=== PATIENT | female | born 1965 | race Caucasian/White ===

== ENCOUNTER 2017-04-24 10:38 | Inpatient (IN) | payer SELFPAY ==
[2017-04-24] MEDS ORDERED: Ticagrelor 90 MG Tab PO ONE (10:40)
[2017-04-24] MEDS ORDERED: Famotidine 20 MG/2 ML SDV IVPUSH ONE (10:40)
[2017-04-24] MEDS ORDERED: Metoprolol Tartrate 5 MG/5 ML SDV IVPUSH ONE (10:40)
[2017-04-24] MEDS ORDERED: Aspirin 81 MG Tab.Chew CHEW ONE (10:40)
--- NOTE | 2017-04-24 10:40 | EDM.PDOC ---
ED HPI GENERAL MEDICAL PROBLEM - General Chief Complaint: Respiratory Problem Stated Complaint: SOB Time Seen by Provider: 04/24/17 10:40 Source of Information: Reports: Patient, Family (), Old Records ([facility] EMR. No paper hospital chart available.), Other ( Essentially EMR) History Limitations: Reports: No Limitations - History of Present Illness INITIAL COMMENTS - FREE TEXT/NARRATIVE: The patient was brought to the emergency room via private automobile by her for evaluation of 8/10 sharp pressure type retrosternal chest pain with some radiation to the mid back and upper lumbar region and associated with severe dyspnea, some left arm paresthesias, dizziness, and possible near- syncope. She has not taken any medications to this point for her above symptoms. The patient denies any orthostasis, orthopnea, diaphoresis, recent decreased exercise tolerance, or any other anginal-type symptoms. No recent history of abdominal pain, heartburn, nausea, diarrhea, melena, or any food intolerance, including fatty foods, etc., however occasional gross hematochezia during the last couple of weeks with no recent history of antibiotic therapy. She has had a two-week history of a mostly greenish clear productive cough and nasal drainage with possible fever yesterday, however temperature not measured with no known exposure to infection. She also complains of some mild dysuria and urinary frequency with gross hematuria but no colic during the last 2 weeks. She did use her inhaler at about 8 AM this morning, although she is uncertain about whether the inhaler still had medication. She is currently transferring her care from [facility] to [place] and has not been able to refill her medications for about one month. Onset: Today, Sudden Onset Date: 04/24/17 Onset Time: 10:00 Duration: Constant, Getting Worse Location: Reports: Chest, Back, Upper Extremity, Left (Paresthesias only), Radiates to (As above). Denies: Head, Face, Neck, Abdomen, Pelvis, Upper Extremity, Right, Lower Extremity, Left, Lower Extremity, Right Quality: Reports: Ache, Pressure, Sharp Severity: Severe Improves with: Reports: None Worsens with: Reports: None Context: Reports: Other (As above) Associated Symptoms: Reports: Chest Pain, cough w sputum, Fever/Chills, Shortness of Breath, Syncope (Near syncope as above). 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) (As above) Middle Chest Pain Score (Numeric/FACES): 8 - Related Data Allergies Allergy/AdvReac Type Severity Reaction Status Date / Time metronidazole [From Flagyl] Allergy Cannot Verified 04/24/17 10:57 Remember Home Meds: Home Meds Albuterol [IJD: Ventolin HFA] 2 puff INH ASDIRECTED PRN 04/24/17 [History] Metoprolol Tartrate 25 mg PO DAILY 04/24/17 [History] Omeprazole Magnesium [Prilosec Otc] 20 mg PO DAILY 04/24/17 [History] Simvastatin [Simvastatin] 40 mg PO BEDTIME 04/24/17 [History] buPROPion HCl [Wellbutrin Xl] 300 mg PO DAILY 04/24/17 [History] busPIRone HCl [Buspirone HCl] 15 mg PO DAILY 04/24/17 [History] Past Medical History HEENT History: Reports: Allergic Rhinitis. Denies: Cataract, Glaucoma, Hard of Hearing, Impaired Vision, Macular Degeneration, Retinal Detachment Cardiovascular History: Reports: High Cholesterol, Hypertension, Syncope, Other (See Below). Denies: Afib, Aneurysm, Angina, Arrhythmia, Blood Clots/VTE/DVT, CAD, Heart Failure, Heart Murmur, VT, PVD Other Cardiovascular History: Dyslipidemia, near syncopal episode in November [address] scan of the head as below Respiratory History: Reports: Asthma, Bronchitis, Recurrent, COPD, Intubation, Previous, Pneumonia, Recurrent, Other (See Below). Denies: Intubation, Difficult, Pneumothorax, Sleep Apnea, TB Other Respiratory History: Restless leg syndrome Gastrointestinal History: Reports: Chronic Diarrhea, Gastritis, GERD, Irritable Bowel Syndrome, Other (See Below). Denies: Celiac Disease, Cholelithiasis, Colon Polyp, GI Bleed, Hepatitis, Inflammatory Bowel Disease, Jaundice, Pancreatitis, PUD Other Gastrointestinal History: Nonspecific dysphagia with negative workup as below Genitourinary History: Reports: UTI, Recurrent. 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 Denies: Spontaneous , Therapeutic : 1 Para: 1 (Full term without complications during or delivery) LMP (Approximate): Menopausal Other OB/BYN History: Known history of severe pelvic adhesive disease by pelvic laparoscopic exploratory surgery as below with right-sided endometrioma/ovarian cyst, fibrocystic breast disease, surgical menopause as below Musculoskeletal History: Reports: Arthritis, Back Pain, Chronic, Fracture, Osteoarthritis, Other (See Below). Denies: Amputation, Gout, Neck Pain, Chronic , RA, SLE Other Musculoskeletal History: History of right wrist fracture with concomitant fractures of her fingers #2 through 5 in her late 30s Neurological History: Reports: Headaches, Chronic. Denies: Cerebral Aneurysms, CVA, Migraines, MS, Neuropathy, Diabetic, Neuropathy, Peripheral, Parkinson's, Seizure, TIA Psychiatric History: Reports: Addiction, Anxiety, Depression, Other (See Below) . Denies: Abuse, Victim of, ADD, ADHD, Psych Hospitalization(s), Psychosis, PTSD, Suicide Attempt, Suicidal Ideation Other Psychiatric History: History of alcohol abuse as below Endocrine/Metabolic History: Reports: None. Denies: Diabetes, Type I, Diabetes , Type II, Hypothyroidism, IDDM Hematologic History: Reports: None. Denies: Anemia, Blood Transfusion(s), Iron Deficiency Immunologic History: Reports: None. Denies: AIDS, HIV, SLE Oncologic (Cancer) History: Reports: None. Denies: Basal Cell Carcinoma, Cervix , Hodgkin's Lymphoma, Leukemia, Lymphoma, Malignant Melanoma, Non-Hodgkin's Lymphoma, Squamous Cell Carcinoma Dermatologic History: Reports: None. Denies: Eczema, Psoriasis - Infectious Disease History Infectious Disease History: Reports: Chicken Pox, Measles. Denies: C-Difficile , Meningitis, Mononucleosis, MRSA, Mumps, Pertussis (Whooping Cough), Rheumatic Fever, Rubella, Scarlet Fever, Shingles, TB, VRE - Past Surgical History Head Surgeries/Procedures: Reports: None HEENT Surgical History: Reports: Oral Surgery, Other (See Below). Denies: Adenoidectomy, Cataract Surgery, Eye Surgery, Laser Surgery, LASIK, Myringotomy w Tube(s), Naso-Sinus Surgery, Polypectomy, Tonsillectomy Other HEENT Surgeries/Procedures: Laryngoscopy on 11/20/15, complete teeth extraction Cardiovascular Surgical History: Reports: None. Denies: Varicose, Vascular Surgery Respiratory Surgical History: Reports: None. Denies: Thoracentesis GI Surgical History: Reports: None. Denies: Appendectomy, Cholecystectomy, Colonoscopy, EGD, Hernia, Abdominal, Hernia, Inguinal, Hernia Repair/Other, Polypectomy Female Surgical History: Reports: Hysterectomy, Other (See Below). Denies: Breast Biopsy, Section, D&C, Salpingo-Oophorectomy, Tubal Ligation Other Female Surgeries/Procedures: Vaginal hysterectomy on 08/27/07, laparoscopic pelvic exploratory surgery on 10/19/06 with excision of right sided ovarian endometrioma at that time Endocrine Surgical History: Reports: None. Denies: Thyroid Biopsy Neurological Surgical History: Reports: None. Denies: C-Spine, Discectomy, Laminectomy, Spinal Fusion, Vertebroplasty Musculoskeletal Surgical History: Reports: None. Denies: Arthroscopic Knee, Arthroscopic Procedure, Carpal Tunnel, Ganglion Cyst, Joint Replacement, ORIF, Shoulder Surgery Oncologic Surgical History: Reports: None Dermatological Surgical History: Reports: Skin Biopsy, Other (See Below) Other Dermatological Surgeries/Procedures: Excision of benign dermatofibroma from the right lateral subclavicular region on 12/27/16 - Past Imaging History Past Imaging History: Reports: CAT Scan (Negative CT of the head on 11/30/11), Mammogram (Last mammogram on 11/07/16), PFT (Last PFTs with CO2 diffusion studies on 11/02/16), Ultrasound (Pelvic ultrasound on 08/10/06), Other (See Below ) (Negative esophagram on 11/22/15) Social & Family History - Family History HEENT: Reports: Glaucoma, Other (See Below). Denies: Macular Degeneration, Retinal Detachment Other HEENT Family History: Mother with glaucoma Cardiac: Reports: Aneurysm, Bypass, CAD, Heart Failure, Hypertension, VT, PVD/ COD, Other (See Below). Denies: Afib, Arrhythmia, Blood Clots/VTE/DVT, High Cholesterol, Pacemaker, Syncope Other Cardiac Family History: Mother with history of AAA requiring surgery at age 58, hypertension in mother, 6 maternal uncles and one maternal aunt, family history of hyperlipidemia unknown, carotid occlusive disease in mother which did require surgery, mother with recurrent MIs since early 60s with stent placement and additional history of CHF, maternal uncles 6 with fatal MIs in their 60s and history of previous stents and CABGs, brother with VT requiring stent placement at age 50, maternal aunt with CABG and fatal VT in her 60s Respiratory: Reports: COPD, Sleep Apnea, Other (See Below) Other Respiratory Family Hisory: Sleep apnea in maternal uncle and maternal aunt , maternal aunt with fatal COPD in her 60s with history of tobacco use GI: Reports: None. Denies: Celiac Disease, Cholelithiasis, Colon Polyps, Inflammatory Bowel Disease, Irritable Bowel Syndrome : Reports: None. Denies: Dialysis, Renal Calculus, Renal Disease/ Insufficiency, UTI, Recurrent OBGYN: Reports: None. Denies: Endometriosis, Recurrent Spontaneous Musculoskeletal: Reports: Arthritis, Osteoarthritis, Other (See Below). Denies : Gout, RA, SLE Other Musculoskeletal Family History: History of bad arthritis in mother Neurological: Reports: Seizure, Other (See Below). Denies: Alzheimers Disease, CVA, Dementia, MS, Parkinson's, TIA Other Neurological Family History: Brother with seizure disorder secondary to his alcohol abuse Psychiatric: Reports: Anxiety, Depression, Other (See Below). Denies: Abuse, Victim of, ADD, ADHD, Psych Hospitalization(s), PTSD, Suicide Attempt Other Psychiatric Family History: Father and brother with anxiety depression disorder and alcohol abuse Endocrine/Metabolic: Reports: Diabetes, type II, IDDM, Other (See Below) Other Endocrine/Metabolic Family History: Maternal uncle with fatal IDDM in his 60s with previous amputations Hematologic: Reports: None. Denies: Anemia, Transfusion Reaction Immunologic: Reports: None. Denies: AIDS, HIV, SLE Dermatologic: Reports: Eczema, Other (See Below) Other Dermatologic Family History: Mother and maternal aunt with eczema Oncologic: Reports: Breast, Colon, Leukemia, Other (See Below) Other Oncologic Family History: Patient is uncertain about family history of breast and colon cancer although this was mentioned in [facility] records, maternal uncle with fatal leukemia in his 60s, maternal uncle rather than brother as in [facility] records with fatal metastatic unknown type of primary cancer in his late 50s - Tobacco Use Smoking Status *Q: Current Every Day Smoker Tobacco Use Within Last Twelve Months: Cigarettes Years of Tobacco use: 42 (Started smoking at age 9) Packs/Tins Daily: 2 Used Tobacco, but Quit: No Smoking Cessation Information Provided To Patient: Yes (Planned At discharge from hospital) Second Hand Smoke Exposure: Yes Source of Second Hand Smoke Exposure: smokes Second Hand Smoke Education Provided: Yes - Caffeine Use Caffeine Use: Reports: Coffee (2 cups per week), Soda (3 sodas per week). Denies: Energy Drinks, Tea - Alcohol Use Alcohol Use History: Yes Days Per Week of Alcohol Use: 7 (Previous history of alcohol abuse per records with no previous treatment or DWIs) Number of Drinks Per Day: 3 (Usually beer) Total Drinks Per Week: 21 Date of Last Drink: 04/23/17 Alcohol Use Frequency: Daily - Recreational Drug Use Recreational Drug Use: No Drug Use in Last 12 Months: No Recreational Drug Type: Denies: Amphetamines (Speed), Cocaine, Heroin, LSD (Acid ), Marijuana/Hashish, Methamphetamine, Morphine - Living Situation & Occupation Living situation: Reports: (1991, 1 child), with Family (With ) 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 Denies: Malaise, Weakness , Fatigue, Diaphoresis, Decreased Appetite, Weight Loss, Weight Gain HEENT: Reports: Rhinitis. Denies: Contact Lenses, Dental Pain, Ear Pain, Eye Pain, Glasses, Hearing Loss, Sinus Problem, Throat Pain, Vertigo, Vision Change Respiratory: Reports: Shortness of Breath, Wheezing, Cough, Sputum. Denies: Pleuritic Chest Pain, Hemoptysis Cardiovascular: Reports: Chest Pain, Blood Pressure Problem (Elevated on arrival with recent medication noncompliance), Dyspnea on Exertion, Lightheadedness, Syncope (Near syncope as above). Denies: Claudication, Edema, Orthopnea, Palpitations, PND Endocrine: Reports: No Symptoms. Denies: Fatigue GI/Abdominal: Reports: Bloody Stool, Diarrhea (Mild chronic), Hematochezia. Denies: Abdominal Pain, Anorexia, Black Stool, Constipation, Decreased Appetite , Difficulty Swallowing, Distension, Flatus, Hematemesis, Melena, Mucous in Stool, Nausea, Stool Incontinence, Vomiting : Reports: No Symptoms, Dysuria, Frequency, Hematuria, Urgency. Denies: Flank Pain, Incontinence, Irregular Menses Musculoskeletal: Reports: Back Pain. Denies: Neck Pain, Shoulder Pain, Arm Pain , Hand Pain, Leg Pain, Foot Pain, Joint Pain, Joint Swelling, Muscle Pain, Muscle Stiffness Skin: Reports: No Symptoms. Denies: Diaphoresis Neurological: Reports: Dizziness, Numbness, Paresthesia, Tingling. Denies: Confusion, Headache, Pre-Existing Deficit, Seizure, Weakness Psychiatric: Reports: Anxiety, Depression. Denies: Agitation, Confusion, Hallucinations, Homicidal Ideation, Suicidal Ideation Hematologic/Lymphatic: Reports: No Symptoms Immunologic: Reports: No Symptoms ED EXAM, GENERAL - Physical Exam Exam: See Below Exam Limited By: No Limitations General Appearance: Alert, WD/WN, Anxious (Moderate). No: Lethargic, Obtunded, Mild Distress, Moderate Distress, Severe Distress Eye Exam: Bilateral Eye: EOMI, Normal Inspection (No nystagmus), PERRL Ears: Normal External Exam, Normal Canal, Hearing Grossly Normal, Normal TMs Nose: Normal Mucosa, No Blood, Nasal Drainage, Clear Rhinorrhea (Moderate bilateral). No: Nasal Tenderness, Nasal Swelling, Nasal Flaring Throat/Mouth: Normal Lips, Normal Gums, Normal Oropharynx, Normal Voice, No Airway Compromise. No: Normal Teeth (Complete dentures uppers and lowers), Dysphagia, Inflammation, Perioral Cyanosis Head: Atraumatic, Normocephalic. No: Facial Swelling, Facial Tenderness, Sinus Tenderness Neck: Normal Inspection, Supple, Non-Tender, Full Range of Motion. No: Carotid Bruit, Lymphadenopathy (L), Lymphadenopathy (R), Thyromegaly Respiratory/Chest: No Accessory Muscle Use, Chest Non-Tender, Respiratory Distress (Mild), Rales (Moderate diffuse bilateral rales initially was only mild bilateral basilar rales after treatment), Rhonchi (Moderate diffuse bilateral initially), Wheezing (Moderate diffuse bilateral initially). No: Decreased Breath Sounds, Pleural Rub, Accessory Muscle Use, Retractions Cardiovascular: No Edema, No Gallop, No JVD, No Murmur, No Rub, Tachycardia ( Regular rhythm). No: Gallop/S3, Gallop/S4 Peripheral Pulses: 2+: Radial (L), Radial (R), Dorsalis Pedis (L), Dorsalis Pedis (R) GI/Abdominal: Normal Bowel Sounds, Soft, Non-Tender, No Organomegaly, No Distention, No Abnormal Bruit, No Mass, Pelvis Stable (Female) Exam: Deferred Rectal (Female) Exam: Deferred Back Exam: Normal Inspection, Full Range of Motion. No: CVA Tenderness (L), CVA Tenderness (R), Muscle Spasm Extremities: Normal Inspection, Normal Range of Motion, Non-Tender, No Pedal Edema, Normal Capillary Refill. No: Kim's Sign Neurological: Alert, Oriented, CN II-XII Intact, Normal Cognition, Normal Gait, Normal Reflexes (Negative Babinski's), No Motor/Sensory Deficits Psychiatric: Anxious (Moderate), Depressed Mood (Mild to moderate with adequate eye contact) Skin Exam: Warm, Dry, Intact, Normal Color, No Rash. No: Diaphoretic, Ecchymosis, Jaundice, Petechiae, Rash, Wound/Incision Lymphatic: No Adenopathy EKG INTERPRETATION EKG Date: 04/24/17 Time: 11:07 Rhythm: Other (Sinus tachycardia) Rate (Beats/Min): 107 [place]: Normal (Neutral) P-Wave: Enlarged (Mild diffuse biphasic P waves with poor R-wave progression in the anterior leads) QRS: RBBB (QRS interval of 0.12 seconds representing a new complete right bundle branch block with T-wave inversion in lead V1) ST-T: Normal QT: Normal SC/PQ Interval: 0.16 seconds Comparison: Change From Previous EKG (New complete right bundle branch block versus lead placement since 07/17/[address] [facility]) EKG Interpretation Comments: 1. No acute ischemic changes 2. New complete right bundle branch block 3. Sinus tachycardia Course - Vital Signs Last Recorded V/S: Last Vital Signs Temp 37.3 C 04/24/17 10:41 Pulse 92 04/24/17 13:03 Resp 17 04/24/17 13:03 BP 148/69 H 04/24/17 13:03 Pulse Ox 100 04/24/17 13:03 Vital Signs - 24 hr 04/24/17 04/24/17 04/24/17 10:41 10:42 10:50 Temperature [ 37.3 C Temporal] Pulse, 123 H Peripheral Pulse, 128 H Peripheral [ Left Pulse Oximetry] Respiratory 32 H Rate Blood Pressure 133/101 H Blood Pressure 133/101 H [Right Upper Arm] O2 Sat by Pulse 100 Oximetry O2 Sat by Pulse 100 Oximetry [ Nasal Cannula] 04/24/17 04/24/17 04/24/17 11:00 11:10 11:23 Temperature [ Temporal] Pulse, Peripheral Pulse, 109 H 102 H 99 Peripheral [ Left Pulse Oximetry] Respiratory 24 H 17 18 Rate Blood Pressure Blood Pressure 165/78 H 177/77 H 148/72 H [Right Upper Arm] O2 Sat by Pulse 100 100 100 Oximetry O2 Sat by Pulse Oximetry [ Nasal Cannula] 04/24/17 04/24/17 04/24/17 11:37 11:51 12:00 Temperature [ Temporal] Pulse, Peripheral Pulse, 96 100 Peripheral [ Left Pulse Oximetry] Respiratory 12 18 Rate Blood Pressure 151/72 H Blood Pressure 151/72 H 152/72 H [Right Upper Arm] O2 Sat by Pulse 100 100 Oximetry O2 Sat by Pulse Oximetry [ Nasal Cannula] 04/24/17 04/24/17 12:16 13:03 Temperature [ Temporal] Pulse, Peripheral Pulse, 82 92 Peripheral [ Left Pulse Oximetry] Respiratory 12 17 Rate Blood Pressure Blood Pressure 133/68 148/69 H [Right Upper Arm] O2 Sat by Pulse 100 100 Oximetry O2 Sat by Pulse Oximetry [ Nasal Cannula] - Orders/Labs/Meds Orders: Active Orders 24 hr Category Date Time Status Cardiac Monitoring [RC] . DIRECTED Care 04/24/17 10:40 Active EKG Documentation Completion [RC] ASDIRECTED Care 04/24/17 10:40 Active Oxygen Therapy, ED [RC] CONTINUOUS Care 04/24/17 10:40 Active Peripheral IV Care [RC] . DIRECTED Care 04/24/17 10:40 Active Pulse Oximetry [RC] CONTINUOUS Care 04/24/17 10:40 Active RT Aerosol Therapy [RC] ASDIRECTED Care 04/24/17 10:42 Active Up With Assistance [RC] PFP Care 04/24/17 10:40 Active Vital Signs [RC] PFP Care 04/24/17 10:40 Active Nothing per Oral Now Diet [DIET] Diet 04/24/17 Breakfast Active Chest 1V Frontal [CR] Stat Exams 04/24/17 10:40 Taken CULTURE BLOOD [BC] Stat Lab 04/24/17 10:45 Received CULTURE BLOOD [BC] Stat Lab 04/24/17 10:59 Received Levofloxacin/Dextrose 5%-Water [Levaquin in D5W 500 MG/ Med 04/24/17 12:00 Active 100 ML] 500 mg Premix Bag 1 bag IV Q24H Nitroglycerin [Nitrostat] Med 04/24/17 11:49 Stat 0.4 mg SL ONETIME STA Sodium Chloride 0.9% [Saline Flush] Med 04/24/17 10:40 Active 10 ml FLUSH ASDIRECTED PRN Blood Culture x2 Reflex Set [OM.PC] Urgent Oth 04/24/17 10:42 Ordered Obtain Past Medical Record [OM.PC] Urgent Oth 04/24/17 10:40 Active Peripheral IV Insertion Adult [OM.PC] Stat Oth 04/24/17 10:40 Ordered Resuscitation Status Stat Resus Stat 04/24/17 10:40 Ordered Medication Orders Levofloxacin/Dextrose 500 mg/ (Premix) 100 mls @ 100 mls/hr IV Q24H LINDA Last Admin: 04/24/17 11:55 Dose: 100 mls/hr Nitroglycerin (Nitrostat) 0.4 mg SL ONETIME STA Stop: 04/25/17 11:50 Last Admin: 04/24/17 11:51 Dose: 0.4 mg Sodium Chloride (Saline Flush) 10 ml FLUSH ASDIRECTED PRN PRN Reason: Keep Vein Open Last Admin: 04/24/17 10:53 Dose: 10 ml Labs: Laboratory Tests 04/24/17 04/24/17 04/24/17 Range/Units 10:45 10:45 10:45 WBC 17.6 H (4.0-10.2) K/uL RBC 4.71 (3.77-5.09) M/uL Hgb 15.7 H (11.7-15.5) g/dL Hct 46.2 H (34.0-46.0) % MCV 98.1 H (84.0-98.0) fL MCH 33.3 (28.2-33.3) pg MCHC 34.0 (31.7-36.0) g/dL RDW 13.6 (11.2-14.1) % Plt Count 300 (150-350) K/uL Neut % (Auto) 69.2 (45.0-80.0) % Lymph % (Auto) 20.3 (10.0-50.0) % Harlan % (Auto) 9.3 (2.0-14.0) % Eos % (Auto) 0.9 (0.0-5.0) % Baso % (Auto) 0.3 (0.0-2.0) % Neut # (Auto) 12.17 H (1.40-7.00) K/uL Lymph # (Auto) 3.57 H (0.50-3.50) K/uL Harlan # (Auto) 1.64 H (0.00-1.00) K/uL Eos # (Auto) 0.15 (0.00-0.50) K/uL Baso # (Auto) 0.06 (0.00-0.20) K/uL PT 10.2 (9.8-11.7) SEC INR 1.0 APTT 29.8 (23.5-30.0) SEC D-Dimer, Quantitative 229 (0-400) ng/mL Sodium (136-145) mmol/L Potassium (3.5-5.1) mmol/L Chloride (98-107) mmol/L Carbon Dioxide (21.0-32.0) mmol/L BUN (7-18) mg/dL Creatinine (0.51-1.17) mg/dL Est Cr Clr Drug Dosing Estimated GFR (MDRD) mL/min Glucose (74-106) mg/dL Lactic Acid (0.4-2.0) mmol/L Uric Acid (2.6-7.2) mg/dL Calcium (8.5-10.1) mg/dL Magnesium (1.8-2.4) mg/dL Total Bilirubin (0.2-1.0) mg/dL AST (15-37) U/L ALT (12-78) U/L Alkaline Phosphatase (46-116) IU/L Creatine Kinase (26-308) U/L Creatine Kinase Index (0.0-2.5) % CK-MB (CK-2) (0.00-3.60) ng/mL Troponin I (0.000-0.056) ng/mL Ijr-H-[place] Pept (0-125) pg/mL Total Protein (6.4-8.2) g/dL Albumin (3.4-5.0) g/dL TSH, Ultra Sensitive (0.358-3.740) mIU/mL 04/24/17 04/24/17 Range/Units 10:45 10:45 WBC (4.0-10.2) K/uL RBC (3.77-5.09) M/uL Hgb (11.7-15.5) g/dL Hct (34.0-46.0) % MCV (84.0-98.0) fL MCH (28.2-33.3) pg MCHC (31.7-36.0) g/dL RDW (11.2-14.1) % Plt Count (150-350) K/uL Neut % (Auto) (45.0-80.0) % Lymph % (Auto) (10.0-50.0) % Harlan % (Auto) (2.0-14.0) % Eos % (Auto) (0.0-5.0) % Baso % (Auto) (0.0-2.0) % Neut # (Auto) (1.40-7.00) K/uL Lymph # (Auto) (0.50-3.50) K/uL Harlan # (Auto) (0.00-1.00) K/uL Eos # (Auto) (0.00-0.50) K/uL Baso # (Auto) (0.00-0.20) K/uL PT (9.8-11.7) SEC INR APTT (23.5-30.0) SEC D-Dimer, Quantitative (0-400) ng/mL Sodium 139 (136-145) mmol/L Potassium 4.1 (3.5-5.1) mmol/L Chloride 103 (98-107) mmol/L Carbon Dioxide 20.4 L (21.0-32.0) mmol/L BUN 6 L (7-18) mg/dL Creatinine 0.60 (0.51-1.17) mg/dL Est Cr Clr Drug Dosing TNP Estimated GFR (MDRD) > 60 mL/min Glucose 124 H (74-106) mg/dL Lactic Acid 4.9 H (0.4-2.0) mmol/L Uric Acid 5.3 (2.6-7.2) mg/dL Calcium 9.0 (8.5-10.1) mg/dL Magnesium 1.9 (1.8-2.4) mg/dL Total Bilirubin 0.8 (0.2-1.0) mg/dL AST 30 (15-37) U/L ALT 35 (12-78) U/L Alkaline Phosphatase 116 (46-116) IU/L Creatine Kinase 104 (26-308) U/L Creatine Kinase Index 2.1 (0.0-2.5) % CK-MB (CK-2) 2.20 (0.00-3.60) ng/mL Troponin I 0.000 (0.000-0.056) ng/mL [id number]-[id number] Pept 95 (0-125) pg/mL Total Protein 8.2 (6.4-8.2) g/dL Albumin 3.9 (3.4-5.0) g/dL TSH, Ultra Sensitive 3.013 (0.358-3.740) mIU/mL Blood Cultures 2 collected Meds: Medications Generic Name Dose Route Start Last Admin Trade Name Veena PRN Reason Stop Dose Admin Levofloxacin/Dextrose 500 mg/ 100 mls @ 100 mls/hr 04/24/17 12:00 04/24/17 11 :55 Premix IV 100 mls/hr Q24H LINDA Administration Nitroglycerin 0.4 mg 04/24/17 11:49 04/24/17 11:51 Nitrostat SL 04/25/17 11:50 0.4 mg ONETIME STA Administration Sodium Chloride 10 ml 04/24/17 10:40 04/24/17 10:53 Saline Flush FLUSH 10 ml ASDIRECTED PRN Administration Keep Vein Open Discontinued Medications Generic Name Dose Route Start Last Admin Trade Name Veena PRN Reason Stop Dose Admin Albuterol/Ipratropium 3 ml 04/24/17 10:41 04/24/17 10:50 Duoneb 3.0-0.5 Mg/3 Ml NEB 04/24/17 10:42 3 ml ONETIME ONE Administration Aspirin 324 mg 04/24/17 10:40 04/24/17 10:50 Aspirin CHEW 04/24/17 10:41 324 mg ONETIME ONE Administration Budesonide 0.5 mg 04/24/17 10:41 04/24/17 10:50 Pulmicort NEB 04/24/17 10:42 0.5 mg ONETIME ONE Administration Diazepam 2.5 mg 04/24/17 10:41 04/24/17 10:53 Valium IVPUSH 04/24/17 10:42 2.5 mg ONETIME ONE Administration Famotidine 40 mg 04/24/17 10:40 04/24/17 10:52 Pepcid IVPUSH 04/24/17 10:41 40 mg ONETIME ONE Administration Metoprolol Tartrate 2.5 mg 04/24/17 10:40 04/24/17 10:50 Lopressor IVPUSH 04/24/17 10:41 2.5 mg ONETIME ONE Administration Ticagrelor 180 mg 04/24/17 10:40 04/24/17 10:50 Brilinta PO 04/24/17 10:41 180 mg ONETIME ONE Administration - Radiology Interpretation Free Text/Narrative:: general teller showed sinus tachycardia with initial heart rates in the 130s- 140s with improvement to the low 80s-100s after treatment as above. No ectopy or arrhythmia Chest x-ray, portable, shows evidence of severe pulmonary obstructive disease and likely mild pulmonary hypertension with no significant pulmonary infiltrates , cardiomegaly, CHF, pneumothorax, etc. Departure - Departure Time of Disposition: 13:45 Disposition: Admitted As Inpatient 66 Condition: Fair Clinical Impression: Lactic acid increased, Right bundle branch block, Tobacco abuse counseling, Mixed anxiety depressive disorder, Peptic reflux disease, Dyslipidemia Chest pain Qualifiers: Chest pain type: unspecified Qualified Code(s): R07.9 - Chest pain, unspecified Pneumonia Qualifiers: Pneumonia type: due to unspecified organism Laterality: bilateral Lung location : unspecified part of lung Qualified Code(s): J18.9 - Pneumonia, unspecified organism COPD (chronic obstructive pulmonary disease) Qualifiers: COPD type: COPD with acute lower respiratory infection Qualified Code(s): J44.0 - Chronic obstructive pulmonary disease with acute lower respiratory infection Osteoarthritis Qualifiers: Osteoarthritis location: multiple joints Osteoarthritis type: primary Qualified Code(s): M15.0 - Primary generalized (osteo)arthritis Irritable bowel syndrome (IBS) Qualifiers: Irritable bowel syndrome type: with diarrhea Qualified Code(s): K58.0 - Irritable bowel syndrome with diarrhea Hypertension Qualifiers: Hypertension type: essential hypertension Qualified Code(s): I10 - Essential ( primary) hypertension - Discharge Information - Problem List & Annotations (1) Chest pain SNOMED Code(s): 79274152 Code(s): R07.9 - CHEST PAIN, UNSPECIFIED Status: Acute Priority: High Current Visit: Yes Onset Date: 04/24/17 Annotation/Comment:: Chest pain protocol initiated at time of arrival to the emergency room with negative cardiac enzymes and new complete right bundle branch block versus lead placement with initiation of standard rule out VT orders. Chest pain essentially resolved after one dose of supplemental nitroglycerin tablet was given. IV Lopressor both for treatment of her hypertension and as cardiac prophylaxis. Resolution of tachycardia at time of admission Cardiology consultation depending on her clinical course. Patient will likely need a Cardiolite stress test on an outpatient basis LISA, however she is having problems establishing a new primary care provider. Dr. Bustamante will address when he assumes care tomorrow. Qualifiers: Chest pain type: unspecified Qualified Code(s): R07.9 - Chest pain, unspecified (2) Pneumonia SNOMED Code(s): 265817394 Code(s): J18.9 - PNEUMONIA, UNSPECIFIED ORGANISM Status: Acute Priority: High Current Visit: Yes Onset Date: 04/24/17 Annotation/Comment:: Note significant leukocytosis as above with possible stress reaction component. Blood cultures 2 were collected. IV Levaquin started in the emergency room with additional Bactrim DS for pneumonia and possible UTI. Sputum to be obtained LISA. Despite chest pain as above no direct indication of pleurisy. Patient will be admitted to acute care secondary to her probable bilateral basilar pneumonia with COPD exacerbation. Qualifiers: Pneumonia type: due to unspecified organism Laterality: bilateral Lung location: unspecified part of lung Qualified Code(s): J18.9 - Pneumonia, unspecified organism (3) COPD (chronic obstructive pulmonary disease) SNOMED Code(s): 20598325 Code(s): J44.9 - CHRONIC OBSTRUCTIVE PULMONARY DISEASE, UNSPECIFIED Status : Chronic Priority: Medium Current Visit: Yes Annotation/Comment:: Inhaler use this morning, however previous history of medication noncompliance with patient uncertain whether her inhaler has already been exhausted as above. Aggressive nebulizer therapy during this hospitalization with patient given one triple nebulizer treatment in the emergency room with excellent results and only very occasional wheezes, rhonchi, and mostly basilar rales time of admission. Mild polycythemia likely secondary to her COPD and tobacco abuse Qualifiers: COPD type: COPD with acute lower respiratory infection Qualified Code(s): J44.0 - Chronic obstructive pulmonary disease with acute lower respiratory infection (4) Dyslipidemia SNOMED Code(s): 002686197 Code(s): E78.5 - HYPERLIPIDEMIA, UNSPECIFIED Status: Chronic Priority: Medium Current Visit: Yes Annotation/Comment:: Lipid panel and glycosylated hemoglobin in the a.m. (5) Hypertension SNOMED Code(s): 21279525 Code(s): I10 - ESSENTIAL (PRIMARY) HYPERTENSION Status: Chronic Priority : High Current Visit: Yes Annotation/Comment:: Blood pressure elevated on arrival with blood pressure in good control at time of admission. Note recent medication noncompliance as above Qualifiers: Hypertension type: essential hypertension Qualified Code(s): I10 - Essential (primary) hypertension (6) Irritable bowel syndrome (IBS) SNOMED Code(s): 69473774, 32774670 Code(s): K58.9 - IRRITABLE BOWEL SYNDROME WITHOUT DIARRHEA Status: Chronic Priority: Medium Current Visit: Yes Annotation/Comment:: Stable by history, however note history of nonspecific intermittent gross hematochezia. Patient did have a colonoscopy scheduled at [facility], although this was apparently canceled secondary to her lack of insurance? Patient may benefit from EGD and colonoscopy in the near future, however. Hemoccult and stool for C. difficile during this hospitalization Qualifiers: Irritable bowel syndrome type: with diarrhea Qualified Code(s): K58.0 - Irritable bowel syndrome with diarrhea (7) Lactic acid increased SNOMED Code(s): 48546258 Code(s): E87.2 - ACIDOSIS Status: Acute Priority: High Current Visit: Yes Onset Date: 04/24/17 Annotation/Comment:: Observe for now. No direct evidence of sepsis or acidosis despite initial tachycardia and leukocytosis. Repeat lactic acid with next set of blood work in the a.m. Consider IV fluids. UA with urine for culture and sensitivity also to be collected LISA (8) Mixed anxiety depressive disorder SNOMED Code(s): 924693736 Code(s): F41.8 - OTHER SPECIFIED ANXIETY DISORDERS Status: Chronic Priority: High Current Visit: Yes Annotation/Comment:: Significant anxiety depression disorder with previous history of alcohol abuse without treatment. Note recent increased stressors secondary to the of her [id number] 2 days ago. Additional stressors with chronic health problems, inability to have a primary care provider, medication noncompliance, etc. Emotional support provided. Medication compliance once again strongly encouraged (9) Osteoarthritis SNOMED Code(s): 299785279 Code(s): M19.90 - UNSPECIFIED OSTEOARTHRITIS, UNSPECIFIED SITE Status: Chronic Priority: Medium Current Visit: Yes Annotation/Comment:: Stable by history Qualifiers: Osteoarthritis location: multiple joints Osteoarthritis type: primary Qualified Code(s): M15.0 - Primary generalized (osteo)arthritis (10) Peptic reflux disease SNOMED Code(s): 32097659 Code(s): K21.9 - GASTRO-ESOPHAGEAL REFLUX DISEASE WITHOUT ESOPHAGITIS Status: Chronic Priority: Medium Current Visit: Yes Annotation/Comment:: Stable by history, although note specific gross hematochezia as above. High- dose IV Pepcid given as GI prophylaxis on arrival (11) Right bundle branch block SNOMED Code(s): 43419227 Code(s): I45.10 - UNSPECIFIED RIGHT BUNDLE-BRANCH BLOCK Status: Acute Priority: High Current Visit: Yes Onset Date: 04/24/17 Annotation/Comment: : As above (12) Tobacco abuse counseling SNOMED Code(s): 932004523, 128167750, 491953093 Code(s): Z71.6 - TOBACCO ABUSE COUNSELING Status: Chronic Priority: Medium Current Visit: Yes Annotation/Comment:: Tobacco cessation strongly encouraged with tobacco cessation information for the patient and her at hospital discharge recommended - Problem List Review Problem List Initiated/Reviewed/Updated: Yes - My Orders Last 24 Hours: My Active Orders 04/24/17 10:40 Cardiac Monitoring [RC] . DIRECTED EKG Documentation Completion [RC] ASDIRECTED Oxygen Therapy, ED [RC] CONTINUOUS Peripheral IV Care [RC] . DIRECTED Pulse Oximetry [RC] CONTINUOUS Up With Assistance [RC] PFP Vital Signs [RC] PFP Chest 1V Frontal [CR] Stat Sodium Chloride 0.9% [Saline Flush] 10 ml FLUSH ASDIRECTED PRN Obtain Past Medical Record [OM.PC] Urgent Peripheral IV Insertion Adult [OM.PC] Stat Resuscitation Status Stat 04/24/17 10:42 RT Aerosol Therapy [RC] ASDIRECTED Blood Culture x2 Reflex Set [OM.PC] Urgent 04/24/17 10:45 CULTURE BLOOD [BC] Stat 04/24/17 10:59 CULTURE BLOOD [BC] Stat 04/24/17 11:49 Nitroglycerin [Nitrostat] 0.4 mg SL ONETIME STA 04/24/17 12:00 Levofloxacin/Dextrose 5%-Water [Levaquin in D5W 500 MG/100 ML] 500 mg Premix Bag 1 bag IV Q24H 04/24/17 Breakfast Nothing per Oral Now Diet [DIET] - Assessment/Plan Admission H&P: Please use this note as an admission H&P Last 24 Hours: My Active Orders 04/24/17 10:40 Cardiac Monitoring [RC] . DIRECTED EKG Documentation Completion [RC] ASDIRECTED Oxygen Therapy, ED [RC] CONTINUOUS Peripheral IV Care [RC] . DIRECTED Pulse Oximetry [RC] CONTINUOUS Up With Assistance [RC] PFP Vital Signs [RC] PFP Chest 1V Frontal [CR] Stat Sodium Chloride 0.9% [Saline Flush] 10 ml FLUSH ASDIRECTED PRN Obtain Past Medical Record [OM.PC] Urgent Peripheral IV Insertion Adult [OM.PC] Stat Resuscitation Status Stat 04/24/17 10:42 RT Aerosol Therapy [RC] ASDIRECTED Blood Culture x2 Reflex Set [OM.PC] Urgent 04/24/17 10:45 CULTURE BLOOD [BC] Stat 04/24/17 10:59 CULTURE BLOOD [BC] Stat 04/24/17 11:49 Nitroglycerin [Nitrostat] 0.4 mg SL ONETIME STA 04/24/17 12:00 Levofloxacin/Dextrose 5%-Water [Levaquin in D5W 500 MG/100 ML] 500 mg Premix Bag 1 bag IV Q24H 04/24/17 Breakfast Nothing per Oral Now Diet [DIET] Assessment:: As above Plan: As above. Extensive precautions were given to the patient, who is in agreement with the treatment plan. The patient will require about 3-4 days of inpatient/ acute care secondary to multiple health problems as above. Carrington Bustamante M.D. , at the [facility], assumes care in the a.m. Patient is having trouble establishing a new primary provider at [facility] secondary to lack of insurance, etc.
[2017-04-24] MEDS ORDERED: Budesonide 0.5 MG/2 ML Neb Susp NEB ONE (10:41)
[2017-04-24] MEDS ORDERED: Albuterol/Ipratropium 3.0-0.5 MG/3 ML Neb Soln NEB ONE (10:41)
[2017-04-24] MEDS: Sodium Chloride 0.9% 10 ML Syringe FLUSH PRN ×2 (10:53→19:59)
[2017-04-24 11:22] LABS: CHLORIDE,CL 103 mmol/L (98-107); SODIUM,NA 139 mmol/L (136-145)
[2017-04-24] MEDS ORDERED: Nitroglycerin 0.4 MG Tab.SL SL STA (11:49)
[2017-04-24] MEDS: Levofloxacin/Dextrose 5%-Water 500 MG in Premix Bag 1 BAG IV SCH (11:55)
[2017-04-24] MEDS ORDERED: Albuterol 0.083% 2.5 MG/3 ML Neb Soln INH PRN (14:00)
[2017-04-24] MEDS ORDERED: Sodium Chloride 0.9% 10 ML Syringe FLUSH PRN (14:04)
[2017-04-24] MEDS ORDERED: Albuterol/Ipratropium 3.0-0.5 MG/3 ML Neb Soln NEB PRN (14:09)
[2017-04-24] MEDS: busPIRone 15 MG Tab PO SCH (14:52)
[2017-04-24] MEDS: buPROPion 150 MG Tab.ER PO SCH (14:52)
[2017-04-24] MEDS: Sulfamethoxazole/Trimethoprim 800-160 MG Tab PO SCH (17:54)
[2017-04-24] MEDS: Metoprolol Succinate 25 MG Tab.ER PO SCH (17:54)
[2017-04-24] MEDS: Simvastatin 20 MG Tab PO SCH (19:52)
[2017-04-24] MEDS: Albuterol/Ipratropium 3.0-0.5 MG/3 ML Neb Soln NEB SCH (19:52)
[2017-04-24] MEDS: Acetaminophen 325 MG Tab PO PRN (20:01)
[2017-04-24] MEDS: Temazepam 15 MG Cap PO PRN (21:43)
[2017-04-25] MEDS: Albuterol/Ipratropium 3.0-0.5 MG/3 ML Neb Soln NEB SCH ×4 (02:08→21:11)
[2017-04-25] MEDS: buPROPion 150 MG Tab.ER PO SCH (07:24)
[2017-04-25] MEDS: busPIRone 15 MG Tab PO SCH (07:24)
[2017-04-25] MEDS: Sulfamethoxazole/Trimethoprim 800-160 MG Tab PO SCH ×2 (07:24→17:32)
[2017-04-25 07:46] LABS: CHLORIDE,CL 107 mmol/L (98-107); SODIUM,NA 139 mmol/L (136-145)
[2017-04-25] MEDS ORDERED: Budesonide 0.5 MG/2 ML Neb Susp NEB SCH (08:00)
[2017-04-25] MEDS: Acetaminophen 325 MG Tab PO PRN ×2 (10:26→21:10)
--- NOTE | 2017-04-25 11:02 | PCM.PN ---
- General Info Date of Service: 04/25/17 - Review of Systems General: Reports: No Symptoms HEENT: Reports: no symptoms Pulmonary: Reports: shortness of breath Cardiovascular: Denies: Chest Pain Gastrointestinal: Reports: No symptoms Skin: Reports: no symptoms Neurological: Reports: No Symptoms Psychiatric: Reports: no symptoms - Patient Data Vitals - most recent: Last Vital Signs Temp 97.7 F 04/25/17 07:32 Pulse 84 04/25/17 07:32 Resp 16 04/25/17 07:32 BP 93/51 L 04/25/17 07:32 Pulse Ox 100 04/25/17 07:32 Weight - most recent: 122 lb 6.4 oz I&O - last 24 hours: Intake & Output 04/24/17 04/25/17 04/25/17 22:59 06:59 14:59 Intake Total 420 240 Output Total 450 Balance -30 240 Lab Results last 24 hrs: Laboratory Results - last 24 hr 04/24/17 04/24/17 04/24/17 Range/Units 16:30 16:30 18:18 WBC (4.0-10.2) K/uL RBC (3.77-5.09) M/uL Hgb (11.7-15.5) g/dL Hct (34.0-46.0) % MCV (84.0-98.0) fL MCH (28.2-33.3) pg MCHC (31.7-36.0) g/dL RDW (11.2-14.1) % Plt Count (150-350) K/uL Neut % (Auto) (45.0-80.0) % Lymph % (Auto) (10.0-50.0) % [place] % (Auto) (2.0-14.0) % Eos % (Auto) (0.0-5.0) % Baso % (Auto) (0.0-2.0) % Neut # (Auto) (1.40-7.00) K/uL Lymph # (Auto) (0.50-3.50) K/uL [place] # (Auto) (0.00-1.00) K/uL Eos # (Auto) (0.00-0.50) K/uL Baso # (Auto) (0.00-0.20) K/uL Sodium (136-145) mmol/L Potassium (3.5-5.1) mmol/L Chloride (98-107) mmol/L Carbon Dioxide (21.0-32.0) mmol/L BUN (7-18) mg/dL Creatinine (0.51-1.17) mg/dL Est Cr Clr Drug Dosing mL/min Estimated GFR (MDRD) mL/min Glucose (74-106) mg/dL Hemoglobin A1c (4.3-5.7) % Lactic Acid 0.8 (0.4-2.0) mmol/L Calcium (8.5-10.1) mg/dL Total Bilirubin (0.2-1.0) mg/dL AST (15-37) U/L ALT (12-78) U/L Alkaline Phosphatase (46-116) IU/L Creatine Kinase 103 (26-308) U/L Creatine Kinase Index 3.4 H (0.0-2.5) % CK-MB (CK-2) 3.50 (0.00-3.60) ng/mL Troponin I 0.006 (0.000-0.056) ng/mL Total Protein (6.4-8.2) g/dL Albumin (3.4-5.0) g/dL Triglycerides (30-150) mg/dL Cholesterol (100-200) mg/dL LDL Cholesterol, Calc (0-100) mg/dL HDL Cholesterol (40-60) mg/dL Specimen Type Urincc Urine Color Yellow Urine Appearance Slightly cloudy Urine pH 6.5 (5.0-9.0) Ur Specific [place] 1.025 (1.005-1.030) Urine Protein 30 H (NEGATIVE) mg/dL Urine Glucose (UA) Negative (NEGATIVE) mg/dL Urine Ketones 80 H (NEGATIVE) mg/dL Urine Occult Blood Trace-lysed H (NEGATIVE) Urine Nitrite Negative (NEGATIVE) Urine Bilirubin Small H (NEGATIVE) Urine Urobilinogen 1.0 (0.2-1.0) E.U./dL Ur Leukocyte Esterase Negative (NEGATIVE) Urine RBC 0-5 /HPF Urine WBC 0-5 /HPF Ur Epithelial Cells Moderate H /LPF Urine Bacteria Moderate H (NONE TO FEW) /HPF Urine Mucus Few H (NEGATIVE) /LPF 04/24/17 04/25/17 04/25/17 Range/Units 21:30 07:00 07:00 WBC 10.6 H (4.0-10.2) K/uL RBC 3.96 (3.77-5.09) M/uL Hgb 13.3 D (11.7-15.5) g/dL Hct 39.9 (34.0-46.0) % MCV 100.8 H (84.0-98.0) fL MCH 33.6 H (28.2-33.3) pg MCHC 33.3 (31.7-36.0) g/dL RDW 13.4 (11.2-14.1) % Plt Count 222 D (150-350) K/uL Neut % (Auto) 77.5 (45.0-80.0) % Lymph % (Auto) 13.1 (10.0-50.0) % [place] % (Auto) 7.1 (2.0-14.0) % Eos % (Auto) 1.8 (0.0-5.0) % Baso % (Auto) 0.5 (0.0-2.0) % Neut # (Auto) 8.24 H (1.40-7.00) K/uL Lymph # (Auto) 1.39 (0.50-3.50) K/uL [place] # (Auto) 0.76 (0.00-1.00) K/uL Eos # (Auto) 0.19 (0.00-0.50) K/uL Baso # (Auto) 0.05 (0.00-0.20) K/uL Sodium 139 (136-145) mmol/L Potassium 3.9 (3.5-5.1) mmol/L Chloride 107 (98-107) mmol/L Carbon Dioxide 24.5 (21.0-32.0) mmol/L BUN 8 (7-18) mg/dL Creatinine 0.72 (0.51-1.17) mg/dL Est Cr Clr Drug Dosing 69.83 mL/min Estimated GFR (MDRD) > 60 mL/min Glucose 92 (74-106) mg/dL Hemoglobin A1c (4.3-5.7) % Lactic Acid (0.4-2.0) mmol/L Calcium 8.5 (8.5-10.1) mg/dL Total Bilirubin 0.9 (0.2-1.0) mg/dL AST 22 (15-37) U/L ALT 25 (12-78) U/L Alkaline Phosphatase 86 (46-116) IU/L Creatine Kinase 85 56 (26-308) U/L Creatine Kinase Index 2.8 H 2.9 H (0.0-2.5) % CK-MB (CK-2) 2.40 1.60 (0.00-3.60) ng/mL Troponin I 0.000 0.000 (0.000-0.056) ng/mL Total Protein 6.7 (6.4-8.2) g/dL Albumin 2.9 L (3.4-5.0) g/dL Triglycerides 103 (30-150) mg/dL Cholesterol 174 (100-200) mg/dL LDL Cholesterol, Calc 103 H (0-100) mg/dL HDL Cholesterol 50 (40-60) mg/dL Specimen Type Urine Color Urine Appearance Urine pH (5.0-9.0) Ur Specific [place] (1.005-1.030) Urine Protein (NEGATIVE) mg/dL Urine Glucose (UA) (NEGATIVE) mg/dL Urine Ketones (NEGATIVE) mg/dL Urine Occult Blood (NEGATIVE) Urine Nitrite (NEGATIVE) Urine Bilirubin (NEGATIVE) Urine Urobilinogen (0.2-1.0) E.U./dL Ur Leukocyte Esterase (NEGATIVE) Urine RBC /HPF Urine WBC /HPF Ur Epithelial Cells /LPF Urine Bacteria (NONE TO FEW) /HPF Urine Mucus (NEGATIVE) /LPF 04/25/17 04/25/17 Range/Units 07:00 07:00 WBC (4.0-10.2) K/uL RBC (3.77-5.09) M/uL Hgb (11.7-15.5) g/dL Hct (34.0-46.0) % MCV (84.0-98.0) fL MCH (28.2-33.3) pg MCHC (31.7-36.0) g/dL RDW (11.2-14.1) % Plt Count (150-350) K/uL Neut % (Auto) (45.0-80.0) % Lymph % (Auto) (10.0-50.0) % [place] % (Auto) (2.0-14.0) % Eos % (Auto) (0.0-5.0) % Baso % (Auto) (0.0-2.0) % Neut # (Auto) (1.40-7.00) K/uL Lymph # (Auto) (0.50-3.50) K/uL [place] # (Auto) (0.00-1.00) K/uL Eos # (Auto) (0.00-0.50) K/uL Baso # (Auto) (0.00-0.20) K/uL Sodium (136-145) mmol/L Potassium (3.5-5.1) mmol/L Chloride (98-107) mmol/L Carbon Dioxide (21.0-32.0) mmol/L BUN (7-18) mg/dL Creatinine (0.51-1.17) mg/dL Est Cr Clr Drug Dosing mL/min Estimated GFR (MDRD) mL/min Glucose (74-106) mg/dL Hemoglobin A1c 5.0 (4.3-5.7) % Lactic Acid 0.4 (0.4-2.0) mmol/L Calcium (8.5-10.1) mg/dL Total Bilirubin (0.2-1.0) mg/dL AST (15-37) U/L ALT (12-78) U/L Alkaline Phosphatase (46-116) IU/L Creatine Kinase (26-308) U/L Creatine Kinase Index (0.0-2.5) % CK-MB (CK-2) (0.00-3.60) ng/mL Troponin I (0.000-0.056) ng/mL Total Protein (6.4-8.2) g/dL Albumin (3.4-5.0) g/dL Triglycerides (30-150) mg/dL Cholesterol (100-200) mg/dL LDL Cholesterol, Calc (0-100) mg/dL HDL Cholesterol (40-60) mg/dL Specimen Type Urine Color Urine Appearance Urine pH (5.0-9.0) Ur Specific [place] (1.005-1.030) Urine Protein (NEGATIVE) mg/dL Urine Glucose (UA) (NEGATIVE) mg/dL Urine Ketones (NEGATIVE) mg/dL Urine Occult Blood (NEGATIVE) Urine Nitrite (NEGATIVE) Urine Bilirubin (NEGATIVE) Urine Urobilinogen (0.2-1.0) E.U./dL Ur Leukocyte Esterase (NEGATIVE) Urine RBC /HPF Urine WBC /HPF Ur Epithelial Cells /LPF Urine Bacteria (NONE TO FEW) /HPF Urine Mucus (NEGATIVE) /LPF Jae Results last 24 hrs: Microbiology 04/24/17 18:18 Stool Occult Blood (JAE) - Final Stool / Feces Med Orders - Current: Current Medications Acetaminophen (Tylenol) 650 mg PO Q4H PRN PRN Reason: Pain Last Admin: 04/25/17 10:26 Dose: 650 mg Albuterol (Proventil Neb Soln) 2.5 mg INH Q2H PRN PRN Reason: SHORTNESS OF BREATH Albuterol/Ipratropium (Duoneb 3.0-0.5 Mg/3 Ml) 3 ml NEB Q4HRRT PRN PRN Reason: Dyspnea Albuterol/Ipratropium (Duoneb 3.0-0.5 Mg/3 Ml) 3 ml NEB Q6HRRT [facility] Last Admin: 04/25/17 07:24 Dose: 3 ml Budesonide (Pulmicort) 0.5 mg NEB BIDRT [facility] Last Admin: 04/25/17 07:25 Dose: 0.5 mg Bupropion HCl (Wellbutrin Xl) 300 mg PO DAILY [facility] Last Admin: 04/25/17 07:24 Dose: 300 mg Buspirone HCl (Buspar) 15 mg PO DAILY [facility] Last Admin: 04/25/17 07:24 Dose: 15 mg Levofloxacin/Dextrose 500 mg/ (Premix) 100 mls @ 100 mls/hr IV Q24H [facility] Last Admin: 04/24/17 11:55 Dose: 100 mls/hr Metoprolol Succinate (Toprol Xl) 25 mg PO QPM [facility] Last Admin: 04/24/17 17:54 Dose: 25 mg Nitroglycerin (Nitrostat) 0.4 mg SL ONETIME STA Stop: 04/25/17 11:50 Last Admin: 04/24/17 11:51 Dose: 0.4 mg Simvastatin (Zocor) 40 mg PO BEDTIME [facility] Last Admin: 04/24/17 19:52 Dose: 40 mg Sodium Chloride (Saline Flush) 10 ml FLUSH ASDIRECTED PRN PRN Reason: Keep Vein Open Last Admin: 04/24/17 19:59 Dose: 10 ml Sodium Chloride (Saline Flush) 10 ml FLUSH Q12HR PRN PRN Reason: Keep Vein Open Temazepam (Restoril) 15 mg PO BEDTIME PRN PRN Reason: Insomnia Last Admin: 04/24/17 21:43 Dose: 15 mg Trimethoprim/Sulfamethoxazole (Septra Ds) 1 tab PO BID LINDA Last Admin: 04/25/17 07:24 Dose: 1 tab Discontinued Medications Albuterol/Ipratropium (Duoneb 3.0-0.5 Mg/3 Ml) 3 ml NEB ONETIME ONE Stop: 04/24/17 10:42 Last Admin: 04/24/17 10:50 Dose: 3 ml Aspirin (Aspirin) 324 mg CHEW ONETIME ONE Stop: 04/24/17 10:41 Last Admin: 04/24/17 10:50 Dose: 324 mg Budesonide (Pulmicort) 0.5 mg NEB ONETIME ONE Stop: 04/24/17 10:42 Last Admin: 04/24/17 10:50 Dose: 0.5 mg Diazepam (Valium) 2.5 mg IVPUSH ONETIME ONE Stop: 04/24/17 10:42 Last Admin: 04/24/17 10:53 Dose: 2.5 mg Famotidine (Pepcid) 40 mg IVPUSH ONETIME ONE Stop: 04/24/17 10:41 Last Admin: 04/24/17 10:52 Dose: 40 mg Metoprolol Tartrate (Lopressor) 2.5 mg IVPUSH ONETIME ONE Stop: 04/24/17 10:41 Last Admin: 04/24/17 10:50 Dose: 2.5 mg Ticagrelor (Brilinta) 180 mg PO ONETIME ONE Stop: 04/24/17 10:41 Last Admin: 04/24/17 10:50 Dose: 180 mg - Exam Quality Assessment: supplemental oxygen (4 L, begin weaning today ) General: alert, oriented HEENT: Pupils equal, Pupils reactive, EOMI, Mucous membr. moist/pink Neck: supple Lungs: Wheezing (bilateral - all chand ) Cardiovascular: Regular Rate, Regular Rhythm GI/Abdominal Exam: Normal Bowel Sounds, Soft, Non-Tender, No Organomegaly, No Distention, No Abnormal Bruit, No Mass, Pelvis Stable (Female) Exam: Deferred Back Exam: Normal Inspection, Full Range of Motion Extremities: Other (patient reported left side weakness is resolved ) Skin: warm, dry, intact Neurological: no new focal deficit Psy/Mental Status: alert, normal affect, normal mood - Problem List & Annotations (1) Pneumonia SNOMED Code(s): 406130137 Code(s): J18.9 - PNEUMONIA, UNSPECIFIED ORGANISM Status: Acute Priority: High Current Visit: Yes Onset Date: 04/24/17 Qualifiers: Pneumonia type: due to unspecified organism Laterality: bilateral Lung location: unspecified part of lung Qualified Code(s): J18.9 - Pneumonia, unspecified organism (2) COPD (chronic obstructive pulmonary disease) SNOMED Code(s): 04372097 Code(s): J44.9 - CHRONIC OBSTRUCTIVE PULMONARY DISEASE, UNSPECIFIED Status : Chronic Priority: Medium Current Visit: Yes Qualifiers: COPD type: COPD with acute lower respiratory infection Qualified Code(s): J44.0 - Chronic obstructive pulmonary disease with acute lower respiratory infection - Problem List Review Problem List Initiated/Reviewed/Updated: Yes - My Orders Last 24 Hours: My Active Orders 04/25/17 10:53 Communication Order [RC] PER UNIT ROUTINE 04/25/17 10:55 Smoking Cessation Education [RC] PER UNIT ROUTINE 04/25/17 11:00 methylPREDNISolone Sod Succ [Solu-MEDROL] 125 mg IVPUSH Q6H 04/26/17 05:11 Chest 2V [CR] AM BASIC METABOLIC PANEL,BMP [CHEM] Routine CBC WITH AUTO DIFF [HEME] AM - Plan Plan:: Saw patient this AM. She is reporting doing much better. Her weakness on the left side has improved. Symptoms describe to myself secondary to tachypnea with retention of C02. Will start patient on solumedrol secondary to COPD. Chest X ray and labs ordered for AM.
[2017-04-25] MEDS: methylPREDNISolone Sodium Succinate 125 MG/2 ML SDV IVPUSH SCH ×2 (11:55→17:32)
[2017-04-25] MEDS: Levofloxacin/Dextrose 5%-Water 500 MG in Premix Bag 1 BAG IV SCH (11:55)
[2017-04-25] MEDS: Benzonatate 100 MG Cap PO PRN (12:30)
[2017-04-25] MEDS: Metoprolol Succinate 25 MG Tab.ER PO SCH (17:32)
[2017-04-25] MEDS: Simvastatin 20 MG Tab PO SCH (21:10)
[2017-04-25] MEDS: Temazepam 15 MG Cap PO PRN (21:10)
[2017-04-26] MEDS: Albuterol/Ipratropium 3.0-0.5 MG/3 ML Neb Soln NEB SCH ×3 (01:32→13:34)
[2017-04-26] MEDS: methylPREDNISolone Sodium Succinate 125 MG/2 ML SDV IVPUSH SCH ×3 (01:32→11:06)
[2017-04-26] MEDS: Sodium Chloride 0.9% 10 ML Syringe FLUSH PRN ×4 (01:33→11:12)
[2017-04-26] MEDS: Benzonatate 100 MG Cap PO PRN ×2 (01:37→13:37)
[2017-04-26 07:36] LABS: CHLORIDE,CL 105 mmol/L (98-107); SODIUM,NA 138 mmol/L (136-145)
[2017-04-26] MEDS: buPROPion 150 MG Tab.ER PO SCH (08:23)
[2017-04-26] MEDS: Sulfamethoxazole/Trimethoprim 800-160 MG Tab PO SCH (08:23)
[2017-04-26] MEDS: busPIRone 15 MG Tab PO SCH (08:23)
[2017-04-26] MEDS: Acetaminophen 325 MG Tab PO PRN (10:02)
[2017-04-26] MEDS: Levofloxacin/Dextrose 5%-Water 500 MG in Premix Bag 1 BAG IV SCH (11:06)
[2017-04-26 11:25] VITALS: BP 110/70
--- NOTE | 2017-04-26 14:03 | PCM.DCSUM1 ---
Discharge Summary - Hospital Course Free Text/Narrative:: Patient is a 51-year-old who was admitted with history of COPD and pneumonia was treated with antibiotics and steroids today she is feeling 100% better would like to go home because she has to go to a I will discharge her and see her again on Sunday for follow-up Brief History: Patient admitted with pneumonia and started on antibiotic yesterday she was started on steroids IV which helped her tremendously today she is feeling 100% better and would like to go home - Discharge Data Discharge Date: 04/26/17 Discharge Disposition: Home, Self-Care 01 Condition: Good - Discharge Diagnosis/Problem(s) (1) Pneumonia SNOMED Code(s): 190836356 ICD Code: J18.9 - PNEUMONIA, UNSPECIFIED ORGANISM Status: Acute Priority : High Current Visit: Yes Onset Date: 04/24/17 Qualifiers: Pneumonia type: due to unspecified organism Laterality: bilateral Lung location: unspecified part of lung Qualified Code(s): J18.9 - Pneumonia, unspecified organism (2) COPD (chronic obstructive pulmonary disease) SNOMED Code(s): 78927963 ICD Code: J44.9 - CHRONIC OBSTRUCTIVE PULMONARY DISEASE, UNSPECIFIED Status : Chronic Priority: Medium Current Visit: Yes Qualifiers: COPD type: COPD with acute lower respiratory infection Qualified Code(s): J44.0 - Chronic obstructive pulmonary disease with acute lower respiratory infection - Patient Instructions Diet: Heart Healthy Diet Activity: As Tolerated Driving: May Drive Today Showering/Bathing: May Shower Notify Provider of: Fever, Nausea and/or Vomiting - Discharge Plan Home Medications: Home Meds Albuterol [IJD: Ventolin HFA] 2 puff INH ASDIRECTED PRN 04/24/17 [History] Metoprolol Tartrate 25 mg PO DAILY 04/24/17 [History] Omeprazole Magnesium [Prilosec Otc] 20 mg PO DAILY 04/24/17 [History] Simvastatin [Simvastatin] 40 mg PO BEDTIME 04/24/17 [History] buPROPion HCl [Wellbutrin Xl] 300 mg PO DAILY 04/24/17 [History] busPIRone HCl [Buspirone HCl] 15 mg PO DAILY 04/24/17 [History] Patient Handouts: Smoking Cessation, Tips for Success, [id number], Levofloxacin injection, Chronic Obstructive Pulmonary Disease, Budesonide inhalation solution, Albuterol; Ipratropium solution for inhalation, Sulfamethoxazole; Trimethoprim, SMX-TMP tablets, Community-Acquired Pneumonia, Adult, Benzonatate capsules Forms: ED Department Discharge Referrals: PCP,Unknown [Ordering Only Provider] - - General Info Date of Service: 04/26/17 Functional Status: Reports: Pain Controlled, Tolerating Diet, Ambulating - Review of Systems General: Reports: No Symptoms HEENT: Reports: No Symptoms Pulmonary: Reports: Shortness of Breath Cardiovascular: Reports: No Symptoms Gastrointestinal: Reports: No Symptoms Genitourinary: Reports: No Symptoms Musculoskeletal: Reports: No Symptoms Skin: Reports: No Symptoms Neurological: Reports: No Symptoms Psychiatric: Reports: No Symptoms - Patient Data Vitals - Most Recent: Last Vital Signs Temp 98.2 F 04/26/17 11:24 Pulse 95 04/26/17 11:24 Resp 16 04/26/17 11:24 BP 110/70 04/26/17 11:24 Pulse Ox 98 04/26/17 11:24 Weight - Most Recent: 121 lb 8 oz I&O - Last 24 hours: Intake & Output 04/25/17 04/26/17 04/26/17 22:59 06:59 14:59 Intake Total 220 280 Balance 220 280 Lab Results - Last 24 hrs: Laboratory Results - last 24 hr 04/26/17 04/26/17 Range/Units 07:10 07:10 WBC 17.2 H (4.0-10.2) K/uL RBC 4.04 (3.77-5.09) M/uL Hgb 13.6 (11.7-15.5) g/dL Hct 40.1 (34.0-46.0) % MCV 99.3 H (84.0-98.0) fL MCH 33.7 H (28.2-33.3) pg MCHC 33.9 (31.7-36.0) g/dL RDW 13.1 (11.2-14.1) % Plt Count 256 (150-350) K/uL Neut % (Auto) 96.1 H (45.0-80.0) % Lymph % (Auto) 3.0 L (10.0-50.0) % [place] % (Auto) 0.8 L (2.0-14.0) % Eos % (Auto) 0.0 (0.0-5.0) % Baso % (Auto) 0.1 (0.0-2.0) % Neut # (Auto) 16.52 H (1.40-7.00) K/uL Lymph # (Auto) 0.51 (0.50-3.50) K/uL [place] # (Auto) 0.14 (0.00-1.00) K/uL Eos # (Auto) 0.00 (0.00-0.50) K/uL Baso # (Auto) 0.01 (0.00-0.20) K/uL Sodium 138 (136-145) mmol/L Potassium 4.1 (3.5-5.1) mmol/L Chloride 105 (98-107) mmol/L Carbon Dioxide 20.7 L (21.0-32.0) mmol/L BUN 8 (7-18) mg/dL Creatinine 0.56 (0.51-1.17) mg/dL Est Cr Clr Drug Dosing 89.78 mL/min Estimated GFR (MDRD) > 60 mL/min Glucose 151 H (74-106) mg/dL Calcium 8.9 (8.5-10.1) mg/dL AYSE Results - Last 24 hrs: Microbiology 04/24/17 18:18 Helicobacter pylori Antigen - Final Stool / Feces 04/25/17 18:00 Gram Stain - Final Sputum - Expectorated 04/24/17 18:18 Urine Culture - Final Urine, Clean Catch MIXED POSITIVE [place] [facility] 2 Med Orders - Current: Current Medications Acetaminophen (Tylenol) 650 mg PO Q4H PRN PRN Reason: Pain Last Admin: 04/26/17 10:02 Dose: 650 mg Albuterol (Proventil Neb Soln) 2.5 mg INH Q2H PRN PRN Reason: SHORTNESS OF BREATH Albuterol/Ipratropium (Duoneb 3.0-0.5 Mg/3 Ml) 3 ml NEB Q4HRRT PRN PRN Reason: Dyspnea Albuterol/Ipratropium (Duoneb 3.0-0.5 Mg/3 Ml) 3 ml NEB Q6HRRT LINDA Last Admin: 04/26/17 13:34 Dose: 3 ml Benzonatate (Tessalon Perles) 100 mg PO Q12H PRN PRN Reason: Cough Last Admin: 04/26/17 13:37 Dose: 100 mg Bupropion HCl (Wellbutrin Xl) 300 mg PO DAILY [facility] Last Admin: 04/26/17 08:23 Dose: 300 mg Buspirone HCl (Buspar) 15 mg PO DAILY [facility] Last Admin: 04/26/17 08:23 Dose: 15 mg Levofloxacin/Dextrose 500 mg/ (Premix) 100 mls @ 100 mls/hr IV Q24H [facility] Last Admin: 04/26/17 11:06 Dose: 100 mls/hr Methylprednisolone Sodium Succinate (Solu-Medrol) 125 mg IVPUSH Q6H [facility] Last Admin: 04/26/17 11:06 Dose: 125 mg Metoprolol Succinate (Toprol Xl) 25 mg PO QPM [facility] Last Admin: 04/25/17 17:32 Dose: 25 mg Simvastatin (Zocor) 40 mg PO BEDTIME [facility] Last Admin: 04/25/17 21:10 Dose: 40 mg Sodium Chloride (Saline Flush) 10 ml FLUSH ASDIRECTED PRN PRN Reason: Keep Vein Open Last Admin: 04/26/17 11:12 Dose: 10 ml Sodium Chloride (Saline Flush) 10 ml FLUSH Q12HR PRN PRN Reason: Keep Vein Open Last Admin: 04/25/17 17:33 Dose: 10 ml Temazepam (Restoril) 15 mg PO BEDTIME PRN PRN Reason: Insomnia Last Admin: 04/25/17 21:10 Dose: 15 mg Trimethoprim/Sulfamethoxazole (Septra Ds) 1 tab PO BID [facility] Last Admin: 04/26/17 08:23 Dose: 1 tab Discontinued Medications Albuterol/Ipratropium (Duoneb 3.0-0.5 Mg/3 Ml) 3 ml NEB ONETIME ONE Stop: 04/24/17 10:42 Last Admin: 04/24/17 10:50 Dose: 3 ml Aspirin (Aspirin) 324 mg CHEW ONETIME ONE Stop: 04/24/17 10:41 Last Admin: 04/24/17 10:50 Dose: 324 mg Budesonide (Pulmicort) 0.5 mg NEB ONETIME ONE Stop: 04/24/17 10:42 Last Admin: 04/24/17 10:50 Dose: 0.5 mg Budesonide (Pulmicort) 0.5 mg NEB BIDRT [facility] Last Admin: 04/25/17 07:25 Dose: 0.5 mg Diazepam (Valium) 2.5 mg IVPUSH ONETIME ONE Stop: 04/24/17 10:42 Last Admin: 04/24/17 10:53 Dose: 2.5 mg Famotidine (Pepcid) 40 mg IVPUSH ONETIME ONE Stop: 04/24/17 10:41 Last Admin: 04/24/17 10:52 Dose: 40 mg Metoprolol Tartrate (Lopressor) 2.5 mg IVPUSH ONETIME ONE Stop: 04/24/17 10:41 Last Admin: 04/24/17 10:50 Dose: 2.5 mg Nitroglycerin (Nitrostat) 0.4 mg SL ONETIME STA Stop: 04/25/17 11:50 Last Admin: 04/24/17 11:51 Dose: 0.4 mg Ticagrelor (Brilinta) 180 mg PO ONETIME ONE Stop: 04/24/17 10:41 Last Admin: 04/24/17 10:50 Dose: 180 mg - Exam General: Reports: alert, oriented HEENT: Reports: Pupils equal, Pupils reactive, EOMI, Mucous membr. moist/pink Neck: Reports: supple Lungs: Reports: Clear to Auscultation, Normal Respiratory Effort Cardiovascular: Reports: Regular Rate, Regular Rhythm GI/Abdominal Exam: Normal Bowel Sounds, Soft, Non-Tender, No Organomegaly, No Distention, No Abnormal Bruit, No Mass, Pelvis Stable (Female) Exam: Normal External Exam, Normal Speculum Exam, Normal Bimanual Exam Rectal (Female) Exam: Normal Exam, Normal Rectal Tone Back Exam: Reports: Normal Inspection, Full Range of Motion Extremities: Normal Inspection, Normal Range of Motion, Non-Tender, No Pedal Edema, Normal Capillary Refill Skin: Reports: warm, dry, intact Wound/Incisions: Reports: healing well Neurological: Reports: no new focal deficit Psy/Mental Status: Reports: alert, normal affect, normal mood *Q Meaningful Use (DIS) - VTE *Q VTE Criteria *Q: - Stroke *Q Stroke Criteria *Q: - AMI *Q AMI Criteria *Q:
== END 2017-04-26 14:47 | disposition home or self-care (01) | DRG 194 ==
LOC: LL.ED 10:38 → LL.MS 13:27
PROVIDERS: ADMIT Family Medicine; ATTEND Family Medicine
DX: J18.9 Pneumonia, unspecified organism (principal); E87.2 Acidosis; J44.9 Chronic obstructive pulmonary disease, unspecified; J45.909 Unspecified asthma, uncomplicated; H40.9 Unspecified glaucoma; E78.00 Pure hypercholesterolemia, unspecified; I10 Essential (primary) hypertension; E78.5 Hyperlipidemia, unspecified; G25.81 Restless legs syndrome; F17.200 Nicotine dependence, unspecified, uncomplicated; M15.0 Primary generalized (osteo)arthritis; K58.0 Irritable bowel syndrome with diarrhea; F41.8 Other specified anxiety disorders; K21.9 Gastro-esophageal reflux disease without esophagitis; I45.10 Unspecified right bundle-branch block; Z71.6 Tobacco abuse counseling; Z88.8 Allergy status to other drugs, medicaments and biological substances; Z79.899 Other long term (current) drug therapy
CPT/HCPCS: 36415; 71010; 71020; 80048; 80053; 80061; 81001; 82272; 82550; 82553; 83036; 83605; 83735; 83880; 84443; 84484; 84550; 85025; 85379; 85610; 85730; 87040; 87070; 87086; 87205; 87338; 93005; 94640; 94664; 96365; 96375; 99223; 99232; 99239; 99285; A9270-GY; J1956; J2930; J3360; J3490; J7050; S0028